=== PATIENT | female | born 1985 | race Caucasian/White ===

== ENCOUNTER 2017-03-27 16:02 | Emergency (ER) | payer BC, MEDICAID ==
[2017-03-27 16:24] VITALS: BP 109/73
[2017-03-27] MEDS ORDERED: Ondansetron ODT TAB* 4 MG PO ONE (16:26)
--- NOTE | 2017-03-27 17:12 | UC ---
FLU HPI - HPI Summary HPI Summary: Pt c/o onset nausea and vomiting at 1500 today, c/o toure chills and stomach discomfort. - History of Current Complaint Chief Complaint: UCGeneralIllness Stated Complaint: VOMITING SORE THROAT HEADACHE CHEST PAIN/SORE Time Seen by Provider: 03/27/17 16:19 Hx Obtained From: Patient Hx Last Menstrual Period: 03/17/17 ?: No Onset/Duration: Sudden Onset, Lasting Hours, Still Present Severity Currently: Mild Severity Initially: Mild Pain Intensity: 7 Pain Scale Used: 0-10 Numeric Associated Signs & Symptoms: Positive: Sore Throat, Headache, Vomiting Related Hx: Possible Flu/Infectious Exposure - Allergy/Home Medications Allergies/Adverse Reactions: Allergies Allergy/AdvReac Type Severity Reaction Status Date / Time malignant hyperthermia Allergy See Comment Uncoded 03/27/17 16:12 seasonal Allergy Sneezing Uncoded 03/27/17 16:12 Home Medications: Home Medications Cholecalciferol TAB* [Vitamin D TAB*] 2,000 unit PO DAILY 03/27/17 [History Confirmed 03/27/17] Turmeric 1 cap PO DAILY 03/27/17 [History Confirmed 03/27/17] PMH/Surg Hx/FS Hx/Imm Hx Previously Healthy: Yes - Surgical History Surgical History: Yes Surgery Procedure, Year, and Place: numerous cleft lip and palate repair - Family History Known Family History: Positive: Cardiac Disease - Social History Occupation: Employed Full-time Alcohol Use: Occasionally Substance Use Type: None Smoking Status (MU): Former Smoker Have You Smoked in the Last Year: No Review of Systems Constitutional: Chills, Fatigue Skin: Negative Eyes: Negative ENT: Sore Throat Respiratory: Cough Cardiovascular: Negative Gastrointestinal: Negative Genitourinary: Negative Motor: Negative Neurovascular: Negative Musculoskeletal: Myalgia Neurological: Headache Psychological: Negative Is Patient Immunocompromised?: No All Other Systems Reviewed And Are Negative: Yes Physical Exam Triage Information Reviewed: Yes Appearance: Ill-Appearing Vital Signs: Initial Vital Signs Temp 97.9 F 03/27/17 16:14 Pulse 81 03/27/17 16:14 Resp 20 03/27/17 16:14 BP 109/73 03/27/17 16:14 Pulse Ox 100 03/27/17 16:14 Eye Exam: Normal ENT Exam: Other ENT: Positive: Nasal congestion Dental Exam: Normal Neck exam: Normal Respiratory Exam: Normal Cardiovascular Exam: Normal Abdominal Exam: Normal Musculoskeletal Exam: Normal Neurological Exam: Normal Psychological Exam: Normal Skin Exam: Normal Flu Course/Dx - Differential Dx/Diagnosis Differential Diagnosis/HQI/PQRI: Influenza, Other - gastroenteritis Provider Diagnoses: nausea and vomiting. viral syndrome Discharge - Discharge Plan Condition: Stable Disposition: HOME Prescriptions: Ondansetron HCl [Zofran] 8 mg PO Q8H PRN #21 tablet PRN Reason: Nausea Patient Education Materials: Acute Nausea and Vomiting (ED) Referrals: [facility] [Outside] Cristela Bush MD [Primary Care Provider] -
== END 2017-03-27 17:01 | disposition home or self-care (01) ==
LOC: UCCORT 16:02
DX: R11.2 Nausea with vomiting, unspecified (principal); B34.9 Viral infection, unspecified; Z87.891 Personal history of nicotine dependence
CPT/HCPCS: 87502; 99202; A9270-GY; G0463